=== PATIENT | male | born 1985 | race Caucasian/White ===

== ENCOUNTER 2023-10-16 11:32 | Emergency (ER) | payer OTHER, SELFPAY ==
[2023-10-16 11:35] VITALS: BP 132/88
[2023-10-16 12:23] LABS: % Basophils 0.6 % (0-2); % Immature Granulocytes 0.3 % (0-0.5); % Lymphocytes 19.7 % (20.5-51.1); % Monocytes 7.8 % (1.7-9.3); % Neutrophils 69.6 % (42.2-75.2); Absolute Eosinophils 0.1 10^3/uL (0-0.7); Absolute Lymphocytes 1.4 10^3/uL (1.2-3.4); Absolute Monocytes 0.6 10^3/uL (0.1-0.6); Absolute Neutrophils 4.9 10^3/uL (1.4-6.5); Hematocrit 32.7 % (39.0-52.0); Hemoglobin 11.7 g/dL (13.0-18.0); Mean Corp Hgb Conc. 35.8 g/dL (33.0-37.0); Mean Corpuscular Hgb 29.3 pg (27.0-31.0); Mean Platelet Volume 9.4 fL (7.4-10.4); Nucleated Red Blood Cells % 0 % (-); Platelet Count 332 10^3/uL (130-400); Red Blood Cell Count 3.99 10^6/uL (4.70-6.10); Red Cell Dist. Width 12.8 % (11.5-14.5)
[2023-10-16 12:37] LABS: ALT (SGPT) 18 U/L (0-50); AST (SGOT) 20 U/L (17-59); Albumin 3.8 g/dl (3.5-5.0); Alkaline Phosphatase 56 U/L (38-126); Blood Urea Nitrogen 11 mg/dl (9-20); Calcium 9.3 mg/dl (8.4-10.2); Carbon Dioxide 25 mmol/L (22-30); Chloride 104 mmol/L (98-107); Glucose 110 mg/dl (70-99); Potassium 4.4 mmol/L (3.5-5.1); Sodium 139 mmol/L (135-145); Total Bilirubin 0.4 mg/dl (0.2-1.3); Total Protein 6.2 g/dl (6.3-8.2); eGFR > 60.00
[2023-10-16 12:47] LABS: Troponin I < 0.012 ng/ml
[2023-10-16 13:13] VITALS: BMI 33.8
--- NOTE | 2023-10-16 13:37 | ED.GENMED ---
History of Present Illness
General
Chief Complaint: Chest Problem
Time Seen by Provider: 10/16/23 13:09
Travel History
Have you had any contact with someone who has COVID-19?: No
Do you have any symptoms of coronavirus? Fever > 100 degrees, chills, cough, shortness of breath, sore throat, loss of taste or smell, muscle aches, or headache?: No
History of Present Illness
History of Present Illness:
38-year-old male with no significant past medical history presents to the emergency department for evaluation of right-sided chest discomfort that has been ongoing for the past 2 to 3 days. Denies any obvious or known trauma. No recent fevers or
chills. Denies any recent upper respiratory tract illnesses in the past month. Pain is pleuritic in nature, focal to the right chest and does not radiate toward the back. No extremity paresthesias. No coughing or shortness of breath. No history
of exogenous estrogen use, denies any recent prolonged immobilization or travel. Denies any leg swelling or calf pain
Past History
Past History
ED Past Medical History: None
ED Past Surgical History: None
Social History
Tobacco: Non-smoker
Review of Systems
Review of Systems
Allergies reviewed?: Yes
All Other Systems: ROS reviewed and negative except as documented in HPI and ROS
Phy Exam
Physical Exam
Physical Exam:
GEN: Well appearing, NAD, WDWN
Eyes: PERRLA, EOMs intact, no scleral icterus
HENT: NCAT, oral mucosa moist
Lungs: CTAB, no wheezes, rales, rhonchi, normal chest wall excursion
Chest: No obvious deformity. No pain on palpation of the right chest wall. Pain is reproduced with pectoral flexion and right upper extremity adduction
Cardiac: RRR, no M/R/G, no peripheral edema. Radial pulses 2+ bilat
Neuro: AO x 3, no focal deficits to BUE/BLE, normal sensation throughout
MSK: No gross deformity or ecchymosis. No edema. No digital clubbing
Skin: No rashes, petechiae. Normal color, no pallor or jaundice.
Psych: Calm, cooperative, proper hygiene
Course
Orders/Labs/Results
Orders:
Orders
10/16/23 11:38
Electrocardiogram (*1) Urgent
Reason for Study: Chest Pain
Other Reason for Exam: right chest pain with sob x two days
EKG- Treatment ONCE
CXR2 [CR Chest - 2 Views ] Urgent
Comment:
Reason For Exam: right upper chest pain x2 days with sob
10/16/23 12:15
Complete Blood Count/With Diff Urgent
Comprehensive Metabolic Panel Urgent
Troponin I Urgent
Abnormal Lab Results
10/16/23
12:15
RBC 3.99 L 10^6/uL
(4.70-6.10)
Hgb 11.7 L g/dL
(13.0-18.0)
Hct 32.7 L %
(39.0-52.0)
Lymphocytes % 19.7 L %
(20.5-51.1)
Glucose 110 H mg/dl
(70-99)
Total Protein 6.2 L g/dl
(6.3-8.2)
10/16/23 12:15
10/16/23 12:15
Vital Signs
Initial and Last Documented VS:
Initial Vital Signs
Temp Pulse Resp BP Pulse Ox
98.2 F 85 16 132/88 98
10/16/23 11:35 10/16/23 11:35 10/16/23 11:35 10/16/23 11:35 10/16/23 11:35
Last Documented Vital Signs
Temp Pulse Resp BP Pulse Ox
98.2 F 85 16 132/88 98
10/16/23 11:35 10/16/23 11:35 10/16/23 11:35 10/16/23 11:35 10/16/23 11:35
MDM/Problems Addressed
MDM/Problems Addressed:
Patient's symptoms are most compatible with acute musculoskeletal pain, doubt acute coronary syndrome given that he has no cardiac risk factors and EKG/troponin is normal. Pain is clearly reproducible with upper extremity movement. Given that
NSAIDs have failed him we will start him on steroids and muscle relaxants.
Comment
Comment:
EKG independently interpreted by me shows normal sinus rhythm at a rate of [address] changes concerning for ischemia, QTc of 423
*Critical Care Note
Total Time (30-74mins, 75-104mins- exclusive of procedures): Not Applicable
ED Attending Note
-
Portions of this chart may have been created with voice recognition software.� Occasional wrong word or��sound alike� substitutions may have occurred due to the inherent limitations of voice recognition software.
Discharge Plan
Departure
Patient Disposition: Home (Routine Discharge)
Date of Disposition: 10/16/23
Time of Disposition: 13:40
Patient with high blood pressure during this ER visit?: No
Discharge Problem:
Chest wall pain
Instructions: Chest Pain That Is Not Caused by the Heart (DC)
Prescriptions:
New
methylprednisolone [Medrol (Doe)] 4 mg tablets,dose pack
See Rx Instructions .ROUTE .COMPLEX Qty: 21 0RF
Rx Instructions:
orally per package directions
methocarbamol 750 mg tablet
750 - 1,500 mg PO HS Qty: 14 0RF
No Action
hydromorphone 2 MG tablet
2 mg PO Q4HPRN PRN (Reason: PAIN) Qty: 0 0RF
enoxaparin 30 MG/0.3 ML syringe
30 mg SC DAILY Qty: 0 0RF
Referrals:
Basia Ramos, DO [Family Provider] -
Interventions
Interventions:
*Risk Screen - Suicide Last Done: 10/16/23 13:13
*General Assessment Last Done: 10/16/23 13:13
*Neglect/Abuse Screening Last Done: 10/16/23 13:13
*ED COVID-19 Vaccine History Last Done: 10/16/23 11:35
*Nursing Disposition Last Done: 10/16/23 14:04
ED- Cardiac Assessment Last Done: 10/16/23 13:13
ED- Pulmonary Assessment Last Done: 10/16/23 13:13
Discharge Date and Time
Discharge Date/Time: 10/16/23 14:05
== END 2023-10-16 14:05 | disposition home or self-care (01) ==
LOC: EMR 11:32
PROVIDERS: Emergency Medicine; EMERGENCY PHYSICIAN Emergency Medicine; FAMILY PHYSICIAN Family Medicine
DX: R07.89 Other chest pain (principal); R06.02 Shortness of breath
CPT/HCPCS: 99285; 71046; 80053; 84484; 85025; 93005